=== PATIENT | male | born 1990 | race Caucasian/White ===

== ENCOUNTER 2017-07-07 05:41 | Emergency (ER) | payer SELFPAY ==
[~2017-07-07] VITALS: Ht 177.8 cm; Wt 61.0 kg
[2017-07-07 09:19] VITALS: BP 141/90
== END 2017-07-07 09:27 | disposition home or self-care (01) ==
LOC: ER 05:41
DX: T40.1X1A Poisoning by heroin, accidental (unintentional), initial encounter (principal); F41.9 Anxiety disorder, unspecified; Y92.9 Unspecified place or not applicable
CPT/HCPCS: 93005; 99291